=== PATIENT | male | born 1950 | race Caucasian/White ===

== ENCOUNTER 2017-03-25 15:03 | Emergency (ER) | payer BC, MEDICARE ==
[~2017-03-25] VITALS: Ht 180.3 cm; Wt 80.0 kg
[~2017-03-25 15:03] MED LIST: OXYC-281 PO
[2017-03-25 15:07] VITALS: Ht 180.3 cm; Wt 80.0 kg
[2017-03-25] MEDS ORDERED: TETRACAINE 0.5% 4 ML OPH RIGHT EYE ONE (16:00)
[2017-03-25] MEDS ORDERED: FLUORESCEIN STRIP RIGHT EYE ONE (16:00)
[2017-03-25] MEDS ORDERED: HYDROCODONE/APAP (10/325) TAB PO ONE (16:00)
[2017-03-25] MEDS ORDERED: HYDROmorphONE 1 MG/ML SYG IV STA (16:16)
[2017-03-25] MEDS ORDERED: ONDANSETRON 4 MG INJ IV STA (16:16)
[2017-03-25] MEDS ORDERED: TIMOLOL 0.25% 5 ML OPH RIGHT EYE ONE (16:30)
[2017-03-25 17:00] LABS: ADD SCAN DIFF NO
[2017-03-25 17:04] LABS: BASOPHILS % 0.6 % (0.0-2.0); EOSINOPHILS % 0.6 % (0.0-7.0); HEMATOCRIT 44.3 % (42.0-52.0); HEMOGLOBIN 15.4 g/dl (14.0-18.0); LYMPHOCYTES # 0.8 10^3/ul (0.8-2.9); LYMPHOCYTES % 16.1 % (15.0-51.0); MEAN CORPUSCULAR HEMOGLOBIN 33.7 pg (29.0-33.0); MEAN CORPUSCULAR HGB CONC 34.8 g/dl (32.0-37.0); MEAN CORPUSCULAR VOLUME 96.9 fl (82.0-101.0); MONOCYTE # 0.4 10^3/ul (0.3-0.9); MONOCYTES % 8.7 % (0.0-11.0); NEUTROPHIL # 3.6 10^3/ul (1.6-7.5); NEUTROPHILS % 73.2 % (39.0-77.0); PLATELET COUNT 254 10^3/UL (140-415); RED BLOOD COUNT 4.57 10^6/ul (4.70-6.10); RED CELL DISTRIBUTION WIDTH 13.3 % (11.5-14.5)
[2017-03-25 17:20] LABS: ALBUMIN 4.8 g/dl (3.3-4.9); ALBUMIN/GLOBULIN RATIO 1.77; BILIRUBIN,INDIRECT 0.4 mg/dl (0-1.1); BILIRUBIN,TOTAL 0.4 mg/dl (0.2-1.3); CALCIUM 9.1 mg/dl (8.4-10.2); CREATININE 0.66 mg/dl (0.61-1.24); INR 0.9; PARTIAL THROMBOPLASTIN TIME 25.4 Sec (25.0-35.0); POTASSIUM 4.2 mmol/L (3.5-5.1); PROTIME 12.1 Sec (12.2-14.2); PT RATIO 0.9; TOTAL PROTEIN 7.5 g/dl (6.1-8.1)
[2017-03-25] MEDS ORDERED: IOHEXOL 300MG/ML 150 ML BTL ONE (18:14)
[2017-03-25] MEDS ORDERED: SOD CHLORIDE 0.9% 100 ML ONE (18:14)
--- NOTE | 2017-03-25 18:53 | RADRPT ---
PROCEDURE: CT brain without contrast CLINICAL INDICATION: Headaches. Visual change TECHNIQUE: A CT of the brain was performed utilizing axial sections from the skull base through th e vertex without contrast. Sagittal and coronal images were also reformatted. The exam CTDIvol = 44. 52 mGy and DLP = 720.23 mGy-cm. COMPARISON: None available FINDINGS: No acute intracranial hemorrhage is identified. There is no mass effect or midline shift. No extra -axial fluid collection is seen. The ventricles and sulci are larger in size and configuration for the patient's provided age of 66 years consistent with advanced generalized atrophy. Extensive low attenuation of the subcortical and periventricular white matter is nonspecific but likely reflective of chronic small vessel ischemic disease. Little-white differentiation is preserved with no findings to suggest an acute ischemic infarct. The fourth ventricle is midline and there is no density alteration within the rojas or cerebellum. The osseous structures are unremarkable. The mastoid air cells and visualized paranasal sinuses are clear. Atherosclerotic calcification of the cavernous internal carotid arteries is noted. No retro bulbar mass or proptosis is identified RPTAT:HJJR IMPRESSION: Advanced atrophy for the patient's provided age with extensive chronic small vessel ischemic white m atter disease but no evidence of acute intracranial abnormality or findings to explain the patient's provided history. Physician Frankie Date Time Electronically viewed and signed by Physician Frankie on 03/25/2017 18:53 JR/
--- NOTE | 2017-03-25 19:14 | RADRPT ---
PROCEDURE: CT orbits with contrast CLINICAL INDICATION: Headaches. This should change. TECHNIQUE: A CT of the orbits was performed utilizing axial sections following the uneventful intr avenous injection of wires ccs Omnipaque-300. Coronal and sagittal images were also reformatted. Th e exam CTDIvol = 52.70 mGy and DLP = 530.37 mGy-cm. COMPARISON: None available. FINDINGS: Globes: Normal in morphology and symmetric bilaterally with no intraocular density alteration or pr optosis. Intraconal structures: No mass lesion is present. The optic nerve and sheath complexes are normal in size and symmetric. No pathologic enhancement is demonstrated Extraocular muscles: Normal in size and symmetric bilaterally, the tendinous insertions are normal in thickness. Extraconal structures: The lacrimal glands are unremarkable. The periorbital and preseptal areas ar e unremarkable. Orbital apex: No abnormalities identified on either side. Optic chiasm: No abnormalities demonstrated. The area of the sella turcica and cavernous sinuses i s normal. Bony orbits: There is no evidence for fracture, erosion or periosteal reaction. Visualized paranasal sinuses: Mild amount of bilateral maxillary and ethmoid sinus disease is note d. RPTAT:HJJR IMPRESSION: 1.Unremarkable CT orbits with contrast without findings to explain the patient's provided history. 2. Mild ethmoid and maxillary sinus disease. Physician Frankie Date Time Electronically viewed and signed by Physician Frankie on 03/25/2017 19:13 /
[2017-03-25] MEDS ORDERED: HYDR-906 PO (20:09)
--- NOTE | 2017-03-25 20:14 | ERD ---
ER Documentation Chief Complaint Date/Time DATE: 03/25/17 TIME: 20:11 Chief Complaint R EYE PAIN AND SOSA X 2 DAYS HPI This 66-year-old male complains of a 2 day history of worsening right eye pain and right-sided headache. Patient denies any history of trauma or history of possible foreign body or when. Patient denies contact lens use. Patient has diminished vision in his right eye without visual field deficits. Patient saw his eye doctor 3 weeks ago and was not told about any abnormalities and was prescribed new glasses both for far vision as well as near vision. ROS All systems reviewed and are negative except as per history of present illness. Medications Home Meds Active Scripts Hydrocodone/Acetaminophen ([place] 5-325 Tablet) 1 Each Tablet, 1 TAB PO Q6H Y for PAIN, #15 TAB Prov:SUJEY STOCKTON MD 03/25/17 Oxycodone Hcl-Acetaminophen* (Percocet*) 5-325 Mg Tablet, 1 TAB PO Q4H Y for PAIN, #10 TAB Prov:JCARLOS LEVINE MD 03/26/15 Allergies Allergies: Coded Allergies: No Known Allergy (Unverified , 03/25/15) PMhx/Soc Medical and Surgical Hx: pt denies Medical Hx History of Surgery: Yes (HERNIA REPAIR) Anesthesia Reaction: No Hx Neurological Disorder: No Hx Respiratory Disorders: No Hx Cardiac Disorders: No Hx Psychiatric Problems: No Hx Miscellaneous Medical Probl: No Hx Alcohol Use: Yes Hx Substance Use: No Hx Tobacco Use: Yes Smoking Status: Current every day smoker Physical Exam Vitals Vital Signs Date Time Temp Pulse Resp B/P Pulse Ox O2 Delivery O2 Flow Rate FiO2 03/25/17 15:07 97.7 71 18 158/84 95 Physical Exam Const: [] Uncomfortable due to headache and right eye pain per Head: Atraumatic Eyes: Right eye shows mid-dilated pupil which is nonreactive. There is some hyperemia of the right sclera. Patient has vision to fingers at 5 feet but not to 10 feet. ENT: Normal External Ears, Nose and Mouth. Neck: Full range of motion..~ No meningismus. Resp: Clear to auscultation bilaterally Cardio: Regular rate and rhythm, no murmurs Abd: Soft, non tender, non distended. Normal bowel sounds Skin: No petechiae or rashes Back: No midline or flank tenderness Ext: No cyanosis, or edema Neur: Awake and alert Psych: Normal Mood and Affect Result Diagram: 03/25/17 1640 03/25/17 1640 Results 24 hrs Laboratory Tests Test 03/25/17 16:40 White Blood Count 5.010^3/ul Red Blood Count 4.5710^6/ul Hemoglobin 15.4g/dl Hematocrit 44.3% Mean Corpuscular Volume 96.9fl Mean Corpuscular Hemoglobin 33.7pg Mean Corpuscular Hemoglobin Concent 34.8g/dl Red Cell Distribution Width 13.3% Platelet Count 30557^3/UL Mean Platelet Volume 9.0fl Neutrophils % 73.2% Lymphocytes % 16.1% Monocytes % 8.7% Eosinophils % 0.6% Basophils % 0.6% Nucleated Red Blood Cells % 0.0/100WBC Neutrophils # 3.610^3/ul Lymphocytes # 0.810^3/ul Monocytes # 0.410^3/ul Eosinophils # 0.010^3/ul Basophils # 0.010^3/ul Nucleated Red Blood Cells # 0.010^3/ul Prothrombin Time 12.1Sec Prothrombin Time Ratio 0.9 INR International Normalized Ratio 0.90 Activated Partial Thromboplast Time 25.4Sec Sodium Level 137mmol/L Potassium Level 4.2mmol/L Chloride Level 103mmol/L Carbon Dioxide Level 23mmol/L Anion Gap 15 Blood Urea Nitrogen 10mg/dl Creatinine 0.66mg/dl Glucose Level 82mg/dl Calcium Level 9.1mg/dl Total Bilirubin 0.4mg/dl Direct Bilirubin 0.00mg/dl Indirect Bilirubin 0.4mg/dl Aspartate Amino Transf (AST/SGOT) 40IU/L Alanine Aminotransferase (ALT/SGPT) 33IU/L Alkaline Phosphatase 73IU/L Total Protein 7.5g/dl Albumin 4.8g/dl Globulin 2.70g/dl Albumin/Globulin Ratio 1.77 Current Medications Medications (Trade) Dose Ordered Sig/Con Route PRN Reason Start Time Stop Time Status Last Admin Dose Admin Acetaminophen/ Hydrocodone Bitart ([place] (10325)) 1 tab ONCE ONCE PO 03/25/17 16:00 03/25/17 16:01 DC 03/25/17 15:51 Tetracaine HCl (Tetracaine 0.5% Steri-Unit Aundrea) 1 drop ONCE ONCE RIGHT EYE 03/25/17 16:00 03/25/17 16:01 DC Fluorescein Sodium (Hakcj-V-Bzrfl) 1 strip ONCE ONCE RIGHT EYE 03/25/17 16:00 03/25/17 16:01 DC 03/25/17 15:51 Hydromorphone HCl (Dilaudid) 1 mg ONCE STAT IV 03/25/17 16:16 03/25/17 16:18 DC 03/25/17 16:44 Ondansetron HCl (Zofran Inj) 4 mg ONCE STAT IV 03/25/17 16:16 03/25/17 16:18 DC 03/25/17 16:45 Timolol Maleate (Timoptic 0.25%) 1 drop ONCE ONCE RIGHT EYE 03/25/17 16:30 03/25/17 16:31 DC 03/25/17 17:33 IV Flush 10 ml 10 ml STK-MED ONCE .ROUTE 03/25/17 18:14 03/25/17 18:15 DC 03/25/17 18:57 Sodium Chloride (NS) 100 ml @ ud STK-MED ONCE .ROUTE 03/25/17 18:14 03/25/17 18:15 DC 03/25/17 18:57 Iohexol (Omnipaque 300mg/ ml) 150 ml STK-MED ONCE .ROUTE 03/25/17 18:14 03/25/17 18:15 DC 03/25/17 18:57 Procedures/MDM Patient's right eye pain and headache are concerning for acute glaucoma. Multiple intraocular measurements of this is only 25-32 with equal measurements on the left eye. The uncertain cause of patient's symptoms IV was obtained. Patient was given Dilaudid 1 mg IV, CBC and CMP are normal. CT brain and orbits with contrast shows no acute abnormalities. With ultrasound shows no evidence of detachment. Patient was given empiric atenolol drops during the ER course had improvement in headache and pain and actually had improvement in vision as well and is able to see the chart at 20/70. Patient presents with right eye pain improved with treatment here of uncertain etiology. Signs and symptoms do not suggest retinal detachment, retinal artery ischemia, optic neuritis, orbital cellulitis, globe rupture, foreign body, abrasions or dendritic lesions. Clinically patient's symptoms are consistent with possible glaucoma, but unable to elicit elevated pressures. Given improvement in patient's course patient will be discharged home with continued timolol drops and Sherrard for pain and urgent ophthalmology follow-up. There is no appreciable current surgical eye condition warranting transfer given his improvement. Patient will be advised to follow-up for ophthalmology services at [facility] [place] for worsening returning symptoms prior to his ophthalmology visit. The patient was stable with no new complaints during the ER course. Clinically, there is no current evidence to suggest meningitis, sepsis, acute abdomen, pneumonia, acute coronary syndrome, pulmonary embolism, or any other emergent condition appearing to require further evaluation or hospitalization. The patient should certainly return for any new or worsening symptoms per the aftercare instructions. They should otherwise follow-up with her primary care doctor for reevaluation this week. Departure Diagnosis: Primary Impression: Pain, eye, right Additional Impression: Eye pain Laterality: right Qualified Code: H57.11 - Eye pain, right Condition: Stable Patient Instructions: Blurred Vision Referrals: [facility] Hours: Mon - Mon 9:00 AM - 5:00 PM [facility] [place] YOU HAVE RECEIVED A MEDICAL SCREENING EXAM AND THE RESULTS INDICATE THAT YOU DO NOT HAVE A CONDITION THAT REQUIRES URGENT TREATMENT IN THE EMERGENCY DEPARTMENT. FURTHER EVALUATION AND TREATMENT OF YOUR CONDITION CAN WAIT UNTIL YOU ARE SEEN IN YOUR DOCTORS OFFICE WITHIN THE NEXT 1-2 DAYS. IT IS YOUR RESPONSIBILITY TO MAKE AN APPOINTMENT FOR FOLOW-UP CARE. IF YOU HAVE A PRIMARY DOCTOR --you should call your primary doctor and schedule and appointment IF YOU DO NOT HAVE A PRIMARY DOCTOR YOU CAN CALL OUR PHYSICIAN REFERRAL HOTLINE AT . IF YOU CAN NOT AFFORD TO SEE A PHYSICIAN YOU CAN CHOSE FROM THE FOLLOWING CRITICAL ACCESS HOSPITAL INSTITUTIONS: [facility] [place] [address] [place] [address] [facility] [address] [place] [address] [facility] [address] [place] [address] Additional Instructions: Symptoms suggest glaucoma given improvement and course but unable to confirm high pressures. 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 Use timolol drops 4 times a day in right eye SUJEY STOCKTON MD Mar 25, 2017 20:14
--- NOTE | 2017-03-25 20:17 | RADRPT ---
PROCEDURE: Ultrasound examination of bilateral orbital globes. CLINICAL INDICATION: Right eye pain and visual loss. TECHNIQUE: Multiple sonographic images of bilateral orbital globes were obtained. COMPARISON: None. FINDINGS: Bilateral orbital globes including the anterior chambers and lens demonstrate normal contours. Ther e are echogenic foci within the vitreous of the right orbital globe. There is no evidence of retina l detachment. The right optic nerve measures 4.2 mm in diameter and the left optic nerve measures 4. 1 mm in diameter. IMPRESSION: No ultrasound evidence of retinal detachment. Echogenic foci within the vitreous of the right orbital globe could represent cholesterol crystals r elated to vitreous degeneration. .Get Agosto MD, MD Date Time Electronically viewed and signed by .Get Agosto MD, on 03/25/2017 20:17 .T/
== END 2017-03-25 20:46 | disposition home or self-care (01) ==
LOC: FTE 15:03
DX: H57.11 Ocular pain, right eye (principal); F17.210 Nicotine dependence, cigarettes, uncomplicated; R51 Headache
CPT/HCPCS: 36415; 70450; 70480; 76536; 80053; 85025; 85610; 85730; 87040; 96374; 96375; 99285; J1170; J2405; Q9967

== ENCOUNTER 2017-06-19 10:25 | Emergency (ER) | payer OTHER ==
[~2017-06-19] VITALS: Ht 182.9 cm; Wt 68.2 kg
[~2017-06-19 10:25] MED LIST changes: +HYDR-906 PO
[2017-06-19 10:33] VITALS: Ht 182.9 cm; Wt 68.2 kg
[2017-06-19] MEDS ORDERED: OXYCODONE/ACETAMINOPHEN (5/325) TAB PO ONE (11:30)
[2017-06-19] MEDS ORDERED: DIPHTH/TET/ACEL PERTUSS (ADULT) 0.5 ML VIAL IM* ONE (11:30)
[2017-06-19 11:54] VITALS: BP 131/89; PULSE 110; RESP 18
--- NOTE | 2017-06-19 12:43 | RADRPT ---
PROCEDURE: XR Chest 1 View. CLINICAL INDICATION: Shortness of breath and trauma. TECHNIQUE: AP view of the chest was obtained. COMPARISON: March 26, 2015 FINDINGS: The cardiomediastinal silhouette is within normal limits. Mild prominence of the right paratracheal soft tissues extending down to the right hilum is observed. No consolidations are identified. No pn eumothorax is seen. Old, healed posterior left 3rd rib fracture is seen. The osseous structures ap pear intact. IMPRESSION: Mild prominence of the right paratracheal soft tissues extending down to the right hilum. Appearanc e is similar to prior exam and could reflect prominent vasculature. Mediastinal adenopathy or mass is not excluded. Further characterization with CT should be considered. Otherwise, clear lungs. If there is high clinical suspicion for traumatic injury, further evaluation with CT should be consi dered. RPTAT: AA .Robin Jansen MD, MD Date Time Electronically viewed and signed by .Robin Jansen MD, on 06/19/2017 12:42 .P/
--- NOTE | 2017-06-19 12:45 | RADRPT ---
PROCEDURE: XR Knee 3 Views. CLINICAL INDICATION: Left knee pain and trauma. TECHNIQUE: AP, lateral and tunnel view of the left knee were obtained. The images reviewed on a P ROBAUTO workstation. COMPARISON: None. FINDINGS: Intramedullary siobhan is identified across an old, healed mid and distal tibial fracture. Additional p artially visualized fixation siobhan is identified in the distal fibula. The osseous structures appear intact. No destructive bony lesions are observed. Interosseous spaces are normal. Few soft tissue calcifications are seen in the proximal lower leg. IMPRESSION: No visualized acute traumatic injury. Old, healed distal tibia fracture status post fixation. Fixation hardware in the distal fibula. If there is high clinical suspicion for acute traumatic injury, further evaluation with CT should be considered. RPTAT: AA .Robin Jansen MD, Date Time Electronically viewed and signed by .Robin Jansen MD, MD on 06/19/2017 12:45 .P/
--- NOTE | 2017-06-19 12:56 | RADRPT ---
PROCEDURE: CT Brain without contrast. CLINICAL INDICATION: Altered mental status. TECHNIQUE: A CT of the brain was performed on a multi-slice CT scanner utilizing axial sections fr om the skull base through the vertex without contrast. Coronal and sagittal reconstructed images wer e provided. One or more of the following does reduction techniques were used: Automated exposure c ontrol; adjustment of the mA and/or kV according to patient size; use of the aorta of reconstruction technique. Images were reviewed on a high-resolution PACS workstation. Exam DLP equals 720.2 mGy-c m. The CTDI equals 44.2 mGy COMPARISON: None available FINDINGS: Mild diffuse cerebral and cerebellar atrophy is present. There is no evidence of intracranial hemor rhage, mass effect or midline shift. No abnormal intra-axial or extra-axial fluid collections are s een. There are moderate deep white matter patchy hypodensities which are nonspecific, but typically seen in small vessel chronic ischemic disease. The density of the brain is otherwise normal and t he mckenzie/white matter differentiation is well preserved. There is mild to moderate right ethmoidal s inus disease. The paranasal sinuses are otherwise clear. Vascular calcifications are identified. There is suggestion of a frontal scalp laceration. IMPRESSION: 1. Stable CT appearance of the brain compared to 03/25/2017 without evidence of acute intracranial pathology.. 2. Mild diffuse atrophy and moderate deep white matter microangiopathic ischemic changes. 3. Suggested frontal scalp laceration. Recommend correlation with history of trauma. 4. Atherosclerotic calcifications of the intracranial carotid arteries. 5. Mild to moderate right ethmoidal sinus disease. RPTAT: KK .Gerald Bender MD, Date Time Electronically viewed and signed by .Gerald Bender MD, on 06/19/2017 12:55 .B/
[2017-06-19] MEDS ORDERED: IBUP-1542 PO (13:02)
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
== END 2017-06-19 12:35 | disposition home or self-care (01) ==
LOC: E/R 10:25
DX: S01.01XA Laceration without foreign body of scalp, initial encounter (principal); F17.210 Nicotine dependence, cigarettes, uncomplicated; R06.02 Shortness of breath; V49.40XA Driver injured in collision with unspecified motor vehicles in traffic accident, initial encounter; Z23 Encounter for immunization
CPT/HCPCS: 70450; 71010; 73562; 90471; 90715

== ENCOUNTER 2017-07-10 09:59 | Emergency (ER) | payer OTHER ==
[~2017-07-10] VITALS: Wt 73.0 kg
[~2017-07-10 09:59] MED LIST changes: +IBUP-1542 PO
--- NOTE | 2017-07-10 11:27 | ERD ---
ER Documentation Chief Complaint Date/Time DATE: 07/10/17 TIME: 11:25 Chief Complaint scalp suture removal HPI Patient is a 66-year-old male who presents to the ED with suture removal to his scalp. States that the injury occurred on 06/19/17. No complaints. Denies headache or dizziness. Denies chest pain or cough or shortness of breath. States that he forgot he had to come in to get his sutures placed. Denies bleeding. ROS All systems reviewed and are negative except as per history of present illness. Medications Home Meds Active Scripts Ibuprofen* (Motrin*) 600 Mg Tab, 600 MG PO Q8 for PAIN AND/OR INFLAMMATION, #30 TAB Prov:JCARLOS LEVINE MD 06/19/17 Hydrocodone/Acetaminophen ([place]well 5-325 Tablet) 1 Each Tablet, 1 TAB PO Q6H Y for PAIN, #15 TAB Prov:SUJEY STOCKTON MD 03/25/17 Oxycodone Hcl-Acetaminophen* (Percocet*) 5-325 Mg Tablet, 1 TAB PO Q4H Y for PAIN, #10 TAB Prov:JCARLOS LEVINE MD 03/26/15 Allergies Allergies: Coded Allergies: No Known Allergy (Unverified , 03/25/15) PMhx/Soc History of Surgery: Yes (HERNIA REPAIR) Anesthesia Reaction: No Hx Neurological Disorder: No Hx Respiratory Disorders: No Hx Cardiac Disorders: No Hx Psychiatric Problems: No Hx Miscellaneous Medical Probl: No Hx Alcohol Use: Yes Hx Substance Use: No Hx Tobacco Use: Yes FmHx Family History: No coronary disease, No diabetes, No other Physical Exam Vitals Vital Signs Date Time Temp Pulse Resp B/P Pulse Ox O2 Delivery O2 Flow Rate FiO2 07/10/17 10:01 98.1 89 18 123/79 99 Physical Exam GENERAL: Well-developed, well-nourished male. Appears in no acute distress. HEAD: Normocephalic, circumferential laceration healing to top of scalf. 13 sutures visible. EYES: Pupils are equally reactive bilaterally. EOMs grossly intact. No conjunctival erythema. ENT: Moist mucous membranes. No uvula deviation. No kissing tonsils. No exudates. NECK: Supple. No lymphadenopathy or thyromegaly. No meningismus. negative kernig. negative brudinski. LUNG: Clear to auscultation bilaterally. No rhonchi, wheezing, rales or coarse breath sounds. HEART: Regular rate and rhythm. No murmurs, rubs or gallops. BACK: No midline tenderness. Extremities: Equal pulses bilaterally. No peripheral clubbing, cyanosis or edema. No unilateral leg swelling. NEUROLOGIC: Alert and oriented. Moving all four extremities. 5/5 strength in all extremities. Normal speech. Steady gait. SKIN: Normal color. Warm and dry. No rashes or lesions. Capillary refill < 2 seconds Procedures/MDM ER COURSE: I kept the patient and/or family informed of laboratory and diagnostic imaging results throughout the emergency room course. MEDICAL DECISION MAKING: This is a 66 year old male who presents with suture removal from 06/19/17. Vital signs were reviewed. Patient is afebrile. Patient is not hypoxic. Suture Removal by me: 13 sutures removed Sutures removed with tweezers and scissors without incident. Wound shows no evidence of infection, foreign body, neurologic injury, vascular injury, open joint or tendon laceration. Patient to follow up PRN. DISCHARGE: At this time, patient is stable for discharge and outpatient management with no new complaints during the ER course. Patient will be discharged home with instructions to recheck for new or worsening symptoms such as fever, nausea, weakness, LOC and to follow up with primary care in the next 1-2 days. Patient was advised to return to the ER for any new or worsening symptoms. Plan was discussed and patient and/or family understands and agrees. Home instructions were given. Departure Diagnosis: Primary Impression: Encounter for removal of sutures Condition: Stable TIMBO ORTEGA PA-C Jul 10, 2017 11:27
== END 2017-07-10 15:11 | disposition left against medical advice (07) ==
LOC: FTE 09:59
DX: Z48.02 Encounter for removal of sutures (principal)
CPT/HCPCS: 99281

== ENCOUNTER 2017-10-24 11:22 | Emergency (ER) | END 2017-10-24 12:57 | disposition home or self-care (01) ==

== ENCOUNTER 2018-03-19 11:39 | Emergency (ER) | END 2018-03-19 14:21 | disposition home or self-care (01) ==

== ENCOUNTER 2019-01-07 18:53 | Emergency (ER) | payer SELFPAY ==
[~2019-01-07 18:53] MED LIST changes: +CEPH-443 PO; +DOCU-144 PO; +HYDR-4011 PO; -HYDR-906 PO; +SULF1TAB31 PO
== END 2019-01-07 19:07 | disposition left against medical advice (07) ==
LOC: E/R 18:53
DX: Z53.21 Procedure and treatment not carried out due to patient leaving prior to being seen by health care provider (principal)

== ENCOUNTER 2019-01-09 03:25 | Emergency (ER) | payer SELFPAY ==
[~2019-01-09] VITALS: Ht 180.3 cm; Wt 65.9 kg
[2019-01-09 03:33] VITALS: BP 114/79; PULSE 73; RESP 18; Ht 180.3 cm; Wt 65.9 kg
[2019-01-09] MEDS ORDERED: HYDR-4011 PO (03:46)
--- NOTE | 2019-01-09 03:49 | ERD ---
ER Documentation Chief Complaint Chief Complaint Left foot pain, was DC'd at [facility] HPI 68-year-old man presents with fracture in his left foot that was diagnosed at [facility]. He is an original incident happened a week ago. He is been trying to see orthopedics but he has not been able to and he is here requesting a refill of pain medication as well as a outpatient referral to orthopedics. ROS All systems reviewed and are negative except as per history of present illness. Medications Home Meds Active Scripts Hydrocodone/Acetaminophen ([place] 5-325 Tablet) 1 Each Tablet, 1 TAB PO Q6H PRN for PAIN, #15 TAB Prov:DUSTY TEJADAC 01/09/19 Ibuprofen* (Motrin*) 600 Mg Tab, 600 MG PO Q6, #30 TAB Prov:RAFIA SELBYC 03/19/18 Cephalexin* (Keflex*) 500 Mg Capsule, 500 MG PO QID for 7 Days, CAP Prov:RAFIA SELBYC 03/19/18 Sulfamethoxazole/Trimethoprim* (Bactrim Ds* Tablet) 1 Each Tablet, 1 TAB PO BID for 7 Days, #14 TAB Prov:RAFIA SELBYC 03/19/18 Docusate Sodium* (Colace*) 100 Mg Capsule, 100 MG PO TID, #30 CAP Prov:SUJEY STOCKTON MD 10/24/17 Hydrocodone/Acetaminophen ([place] 5-325 Tablet) 1 Each Tablet, 1 TAB PO Q6H PRN for PAIN, #14 TAB Prov:SUJEY STOCKTON MD 10/24/17 Cephalexin* (Keflex*) 500 Mg Capsule, 500 MG PO QID for 7 Days, CAP Prov:SUJEY STOCKTON MD 10/24/17 Sulfamethoxazole/Trimethoprim* (Bactrim Ds* Tablet) 1 Each Tablet, 1 TAB PO BID for 7 Days, #14 TAB Prov:SUJEY STOCKTON MD 10/24/17 Ibuprofen* (Motrin*) 600 Mg Tab, 600 MG PO Q8 for PAIN AND/OR INFLAMMATION, #30 TAB Prov:JCARLOS LEVINE MD 06/19/17 Hydrocodone/Acetaminophen ([place] 5-325 Tablet) 1 Each Tablet, 1 TAB PO Q6H PRN for PAIN, #15 TAB Prov:SUJEY STOCKTON MD 03/25/17 Oxycodone Hcl-Acetaminophen* (Percocet*) 5-325 Mg Tablet, 1 TAB PO Q4H PRN for PAIN, #10 TAB Prov:JCARLOS LEVINE MD 03/26/15 Allergies Allergies: Coded Allergies: No Known Allergy (Unverified , 03/19/18) PMhx/Soc History of Surgery: Yes (HERNIA REPAIR) Anesthesia Reaction: No Hx Neurological Disorder: No Hx Respiratory Disorders: No Hx Cardiac Disorders: No Hx Psychiatric Problems: No Hx Miscellaneous Medical Probl: No Hx Alcohol Use: Yes Hx Substance Use: No Hx Tobacco Use: Yes FmHx Family History: No diabetes Physical Exam Vitals Vital Signs Date Temp Pulse Resp B/P (MAP) Pulse Ox O2 O2 Flow FiO2 Time Delivery Rate 01/09/19 97.6 73 18 114/79 96 03:33 (91) Physical Exam Const: No acute distress Head: Atraumatic Eyes: Normal Conjunctiva ENT: Normal External Ears, Nose and Mouth. Neck: Full range of motion. No meningismus. Resp: Clear to auscultation bilaterally Cardio: Regular rate and rhythm, no murmurs Left lower extremity: In a posterior short leg splint Procedures/MDM Patient has fracture of his foot was diagnosed at an outside facility. His splint was rewrapped per his request and he was given referral to orthopedics as well as prescription for small amount of [place] for his pain. Patient counseled regarding my diagnostic impression and care plan. Prior to discharge all questions answered. Pt agrees with treatment plan and understands strict return precautions. Pt is instructed to follow up with primary care provider within 24- 48 hours. Precautionary instructions provided including instructions to return to the ER if not improving or for any worsening or changing symptoms or concerns. Departure Diagnosis: Primary Impression: Foot fracture Condition: Stable Patient Instructions: Fracture, Foot Referrals: [facility] [place] YOU HAVE RECEIVED A MEDICAL SCREENING EXAM AND THE RESULTS INDICATE THAT YOU DO NOT HAVE A CONDITION THAT REQUIRES URGENT TREATMENT IN THE EMERGENCY DEPARTMENT. FURTHER EVALUATION AND TREATMENT OF YOUR CONDITION CAN WAIT UNTIL YOU ARE SEEN IN YOUR DOCTORS OFFICE WITHIN THE NEXT 1-2 DAYS. IT IS YOUR RESPONSIBILITY TO MAKE AN APPOINTMENT FOR FOLOW-UP CARE. IF YOU HAVE A PRIMARY DOCTOR --you should call your primary doctor and schedule and appointment IF YOU DO NOT HAVE A PRIMARY DOCTOR YOU CAN CALL OUR PHYSICIAN REFERRAL HOTLINE AT . IF YOU CAN NOT AFFORD TO SEE A PHYSICIAN YOU CAN CHOSE FROM THE FOLLOWING [facility] INSTITUTIONS: [facility] [address] [place] [address] [facility] [address] [place] [address] [facility] [address] [place] [address] [facility] [place] Hours: Mon-Fri 9:00 AM - 5:00 PM Additional Instructions: SPECIALIST: YOU HAVE A MEDICAL CONDITION WHICH REQUIRES YOU TO SEE A S PECIALIST WITHIN THE NEXT 1-2 DAYS. PLEASE FOLLOW UP WITH YOUR PRIMARY PHYSICIAN FOR REFFERAL.IF YOU DO NOT HAVE A PRIMARY CARE PHYSICIAN AND/OR YOU CAN NOT AFFORD TO SEE A PHYSICIAN THE FOLLOWING RESOURCES HAVE BEEN SUPPLIED TO YOU. IT IS YOUR RESPONSIBILITY TO BE SEEN BY THE SPECIALIST DUSTY TEJADA PA-C Jan 09, 2019 03:49
== END 2019-01-09 04:22 | disposition home or self-care (01) ==
LOC: FTE 03:25
DX: S92.902A Unspecified fracture of left foot, initial encounter for closed fracture (principal); X58.XXXA Exposure to other specified factors, initial encounter; Y92.9 Unspecified place or not applicable; Z76.0 Encounter for issue of repeat prescription; Z87.891 Personal history of nicotine dependence
CPT/HCPCS: 99281